=== PATIENT | female | born 1950 | race Caucasian/White ===

== ENCOUNTER 2021-11-27 09:59 | Emergency (ER) | payer MEDICARE, SELFPAY ==
[2021-11-27 10:07] VITALS: BP 142/64; PULSE 71; RESP 18; TEMP 37.1; O2SAT 94; BMI 51.6
--- NOTE | 2021-11-27 10:32 | ED_ITS ---
HPI - General Adult General Time Seen by Provider: 10:32 Date Seen: 11/27/21 Chief complaint: Cough Stated complaint: Covid +nasal congestion,sore throat,headache Time Seen by Provider: 11/27/21 10:20 Source: patient, RN notes reviewed and old records reviewed Mode of arrival: ambulatory Limitations: no limitations History of Present Illness HPI narrative: 71-year-old female with history of diabetes, high blood pressure, and asthma who presents today with upper respiratory symptoms. She notes 2 days of cough, sinus congestion, body aches, headache. She had a home COVID test that was positive. She denies chest pain, shortness of breath, nausea, vomiting, diarrhea, abdominal pain. She denies lower extremity swelling. She has not been taking anything for her symptoms. Related Data Home Medications Medication Instructions Recorded Confirmed albuterol sulfate 90 mcg/actuation INHALATION 11/27/21 aerosol inhaler aspirin 81 mg chewable tablet 11/27/21 lisinopril 20 mg tablet mg 11/27/21 metformin 500 mg tablet,extended mg PO 11/27/21 release 24 hr propranolol 160 mg capsule,24 mg PO 11/27/21 hr,extended release rosuvastatin 10 mg tablet mg 11/27/21 Previous Rx's Medication Instructions Recorded nirmatrelvir 150 mg-ritonavir 100 See Rx Instructions .ROUTE 11/27/21 mg tablet (EUA) (Paxlovid) .COMPLEX #20 tab Allergies Allergy/AdvReac Type Severity Reaction Status Date / Time Sulfa (Sulfonamide Allergy Mild Verified 11/27/21 10:15 Antibiotics) Review of Systems Status of ROS: Reports: 10 or more systems reviewed and unremarkable except as noted in History and below [facility] Medical History (Updated 11/27/21 @ 10:37 by Raulito Barnard MD) Asthma Diabetes mellitus type 1 Hypertension Surgical History (Updated 11/27/21 @ 10:18 by Rosalie Osullivan RN) History of delivery History of knee replacement Social History Smoking Status: Never smoker How often do you have a drink containing alcohol: 2-3 times a week AUDIT-C Alcohol total score: 3 Non-prescribed substance use: denies use Exam Const: Vital Signs, click to edit/add: Vital Signs - 24 hr 11/27/21 10:07 Temperature 98.8 F Pulse Rate [Radial ] 71 Respiratory Rate 18 Blood Pressure [Ri t Upper Arm] 142/64 H Pulse Oximetry 94 Documenting provider has reviewed patient's vital signs: yes Common normals: no apparent distress, oriented x3, alert and well nourished HENMT: Common normals: normocephalic, head/scalp atraumatic, external ears normal and external nose normal Head and scalp: normocephalic and atraumatic Nose: external nose normal External ear: external ears normal Eye: Common normals: PERRL and conjunctivae normal Conjunctiva: conjunctiva(e) normal Pupil: PERRL Neck & C-Spine: Common normals: full ROM, no lymphadenopathy and supple Chest: Common normals: palpation of chest normal Resp: Common normals: normal respiratory effort and clear to auscultation bilaterally Auscultation: clear to auscultation bilaterally Cardio: Common normals: regular rate, regular rhythm and no murmurs Rate: regular rate Rhythm: regular rhythm GI: Common normals: Normal to inspection, nondistended, normoactive bowel sounds present, soft to palpation and non-tender Palpation: soft : Common normals: no CVA tenderness Bladder/kidney exam: no CVA tenderness Back & Pelvis: Common normals: no CVA tenderness and thoracic and lumbar spine normal to inspection Extremity: Common normals: normal to inspection, full ROM and no pedal edema Neuro: Common normals: oriented x3, CN's II-XII intact bilaterally and no focal motor deficits Sensorium/orientation: alert Psych: Common normals: mental status grossly normal Skin: Common normals: no rashes or lesions noted General skin exam: no rashes or lesions noted Course Vital Signs Vital signs: Initial Vital Signs Temperature 98.8 F 11/27/21 10:07 Temperature Source Temporal Artery Scan 11/27/21 10:07 Pulse Rate 71 11/27/21 10:07 Respiratory Rate 18 11/27/21 10:07 Blood Pressure 142/64 H 11/27/21 10:07 Blood Pressure Mean 90 11/27/21 10:07 Blood Pressure Position Supine 11/27/21 10:07 Pulse Oximetry 94 11/27/21 10:07 Oxygen Delivery Method 11/27/21 10:07 Vital Signs Temperature 98.8 F 11/27/21 10:07 Pulse Rate 71 11/27/21 10:07 Respiratory Rate 18 11/27/21 10:07 Blood Pressure 142/64 H 11/27/21 10:07 Pulse Oximetry 94 11/27/21 10:07 Temperature 98.8 F 11/27/21 10:07 Pulse Rate 71 11/27/21 10:07 Respiratory Rate 18 11/27/21 10:07 Blood Pressure 142/64 H 11/27/21 10:07 Pulse Oximetry 94 11/27/21 10:07 Medical Decision Making MDM Narrative Medical decision making narrative: Patient seen and examined, prior records are reviewed. Patient presents today with upper respiratory symptoms and a positive COVID test. On exam here, she denies chest pain, shortness of breath, no tachypnea or increased work of breathing, oxygen saturations normal. No lower extremity swelling. Pulmonary embolism or DVT is unlikely. Due to age, comorbidities, and BMI patient is a candidate for antivirals. Will check renal function. We did discuss holding statin while she is on medications. Basic panel demonstrates normal creatinine but low creatinine clearance and low GFR. Patient will be given renally adjusted packs Flovent. Medical Records Medical records reviewed: Yes I reviewed the patient's medical records Lab Data Lab results reviewed: Yes I reviewed the patient's lab results Labs: Lab Results 11/27/21 Range/Units 10:35 Sodium 139 (135-149) mmol/L Potassium 4.9 (3.6-5.1) mmol/L Chloride 108 (96-114) mmol/L Carbon Dioxide 27 (20-32) mmol/L BUN 23 (7-30) mg/dL Creatinine 1.2 (0.5-1.5) mg/dL Estimated Creat Clear 39.81 Estimated GFR 49 ml/min Glucose 139 H (60-115) mg/dL Calcium 8.8 (8.4-10.6) mg/dL Discharge Plan Discharge Clinical Impression: COVID-19 virus infection Patient Disposition: Home, Self-Care Condition: Stable Instructions: COVID-19 (Coronavirus Disease 2019) (ED) Additional Instructions: Take Tylenol and ibuprofen as needed for body aches, headache, fever.Continue albuterol as needed for shortness of breath. Do not take your rosuvastatin while you are taking antivirals. Activity Level: No Restrictions Prescriptions: New Paxlovid (EUA) 150-100 mg tablet See Rx Instructions .ROUTE .COMPLEX Qty: 20 0RF Rx Instructions: orally per package directions No Action propranolol 160 mg capsule,extended release 24 hr PO 0RF Label Comments: TAKE 1 CAPSULE BY MOUTH ONCE DAILY. lisinopril 20 mg tablet 0RF Label Comments: TAKE 1 TABLET BY MOUTH EVERY DAY aspirin 81 mg tablet,chewable 0RF Label Comments: CHEW 1 TABLET BY MOUTH ONCE DAILY WITH A MEAL. albuterol sulfate 90 mcg/actuation HFA aerosol inhaler INHALATION 0RF Label Comments: INHALE 2 PUFFS EVERY 4 HRS IF NEEDED FOR SHORTNESS OF BREATH OR WHEEZING-1ST CHOICE-USE WITH SPACER metformin 500 mg tablet extended release 24 hr PO 0RF Label Comments: TAKE 1 TABLET (500 MG) BY MOUTH ONCE DAILY WITH EVENING MEAL. rosuvastatin 10 mg tablet 0RF Label Comments: TAKE 1 TABLET BY MOUTH EVERYDAY AT BEDTIME Stand Alone [facility] Inst[facility]
[2021-11-27 10:53] LABS: Chloride* 108 mmol/L (96-114); Potassium* 4.9 mmol/L (3.6-5.1); Sodium* 139 mmol/L (135-149)
[2021-11-27 10:56] LABS: Blood Urea Nitrogen* 23 mg/dL (7-30); Calcium* 8.8 mg/dL (8.4-10.6); Carbon Dioxide* 27 mmol/L (20-32); Creatinine* 1.2 mg/dL (0.5-1.5); Est. Creatinine Clearance* 39.81; Estimated Glomerular Filt Rate 49 ml/min; Glucose* 139 mg/dL (60-115)
== END 2021-11-27 11:24 | disposition home or self-care (01) ==
PROVIDERS: Emergency Provider Family Medicine; PCP Family Medicine
DX: U07.1 COVID-19 (principal); J45.909 Unspecified asthma, uncomplicated
CPT/HCPCS: 36415; 80048; 99283; 99284

== ENCOUNTER 2023-12-21 08:20 | Outpatient (CLI) | payer MEDICARE, SELFPAY ==
--- NOTE | 2023-12-21 09:30 | P.ANES_ITS ---
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
--- NOTE | 2023-12-21 09:49 | W.ANESCHARGE ---
Anesthesia Charges Start Date/Time Anesthesia Start Date: 12/21/23 Anesthesia Start Time: 09:25 Stop Date/Time Anesthesia Stop Date: 12/21/23 Anesthesia Stop Time: 09:52
--- NOTE | 2023-12-21 09:50 | W.ANESCHARGE ---
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
== END 2023-12-21 08:21 | disposition home or self-care (01) ==
PROVIDERS: PCP Family Medicine; Visit Provider Internal Medicine Gastroenterology
DX: Z12.11 Encounter for screening for malignant neoplasm of colon (principal); Q43.8 Other specified congenital malformations of intestine; Z86.010 Personal history of colon polyps
CPT/HCPCS: 00811; 00812; 45378; 99100; J2704

== ENCOUNTER 2024-04-28 15:00 | Outpatient (RCR) | payer MEDICARE, SELFPAY | END 2024-06-16 08:31 | disposition home or self-care (01) | PROVIDERS: PCP Family Medicine; Visit Provider Family Medicine | DX: M54.50 Low back pain, unspecified (principal); G89.29 Other chronic pain; Z51.89 Encounter for other specified aftercare | CPT/HCPCS: 97110; 97140; 97161 ==

== ENCOUNTER 2024-12-01 14:00 | Outpatient (RCR) | payer MEDICARE, SELFPAY | END 2025-01-05 14:38 | disposition home or self-care (01) | PROVIDERS: PCP Family Medicine; Visit Provider Family Medicine | DX: M25.512 Pain in left shoulder (principal); G89.29 Other chronic pain; Z51.89 Encounter for other specified aftercare | CPT/HCPCS: 97110; 97112; 97140; 97161 ==